=== PATIENT | female | born 1970 | race Caucasian/White ===

== ENCOUNTER 2019-04-04 23:49 | Emergency (ER) | payer OTHER ==
[~2019-04-04] VITALS: Ht 160 cm; Wt 75.9 kg
--- NOTE | 2019-04-04 23:59 | NUR ---
pt roomed. Addy CALERO in room starting IV. Pt drinking orange juice right now.
--- NOTE | 2019-04-05 00:04 | NUR ---
MARTHAAR to Dr Browne
[2019-04-05] MEDS ORDERED: dextrose 5%-normal saline 1,000 ML IV ONE (00:05)
--- NOTE | 2019-04-05 00:40 | NUR ---
Accucheck 185 after Pt given orange juice, carol crackers and fruit cup PO and IV D5. D5 infusion stopped. Dr. Browne made aware, continue to monitor Pt and recheck [facility].
[2019-04-05 00:57] LABS: ALANINE AMINOTRANSFERASE 35 U/L (12-78); ALBUMIN 4.5 G/DL (3.4-5.0); ALBUMIN/GLOBULIN RATIO 1.4 (1.1-1.5); ALKALINE PHOSPHATASE 116 IU/L (46-116); ANION GAP 4 (8-16); ASPARTATE AMINO TRANSFERASE 16 U/L (10-37); BILIRUBIN,TOTAL 0.9 MG/DL (0.1-1.0); BLOOD UREA NITROGEN 22 MG/DL (7-18); BUN/CREATININE RATIO 29.3 (6.6-38.0); CALCIUM 9.7 MG/DL (8.5-10.1); CHLORIDE 107 MMOL/L (99-107); CREATININE 0.75 MG/DL (0.40-0.90); GLUCOSE 91 MG/DL (70-104); POTASSIUM 3.9 MMOL/L (3.5-5.1); SODIUM 144 MMOL/L (135-145); TOTAL PROTEIN 7.8 G/DL (6.4-8.2); eGFR 82 ML/MIN
[2019-04-05 01:01] LABS: MEAN CORPUSCULAR VOLUME 82.7 FL (78-98); MEAN PLATELET VOLUME 7.7 FL (7.4-10.4)
[2019-04-05 01:03] LABS: BASOPHILS % (AUTO) 0.5 % (0-1); EOSINOPHILS # (AUTO) 0.3 X10'3 (0-0.9); EOSINOPHILS % (AUTO) 3.1 % (0-6); HEMATOCRIT 38.1 % (35.0-45.0); LYMPHOCYTES # (AUTO) 3.5 X10'3 (1.1-4.8); LYMPHOCYTES % (AUTO) 39.3 % (21-51); MEAN CORPUSCULAR HEMOGLOBIN 28.1 PG (27.0-31.0); MONOCYTES # (AUTO) 0.7 X10'3 (0-0.9); MONOCYTES % (AUTO) 7.8 % (2-12); NEUTROPHILS # (AUTO) 4.4 X10'3 (1.8-7.7); NEUTROPHILS % (AUTO) 49.3 % (42-75); PLATELET COUNT 426 X10'3 (140-440); RED BLOOD COUNT 4.61 X10'6 (4.20-5.60); RED CELL DISTRIBUTION WIDTH 14.6 % (11.5-14.5)
[2019-04-05] MEDS ORDERED: normal saline 1000ml 1,000 ML IV ONE (01:15)
--- NOTE | 2019-04-05 01:15 | NUR ---
Accucheck of [address] Browne. already aware, order already entered for NS bolus. Plan to give fluids and monitor.
[2019-04-05 02:38] VITALS: BP 115/64
== END 2019-04-05 02:33 | disposition home or self-care (01) ==
LOC: ER 23:50
DX: E11.649 Type 2 diabetes mellitus with hypoglycemia without coma (principal); Z88.5 Allergy status to narcotic agent
CPT/HCPCS: 36415; 80053; 82948; 85025; 96361; 96365; 99283; J7030; J7042